=== PATIENT | female | born 1955 | race Caucasian/White ===

== ENCOUNTER 2017-07-16 12:37 | Inpatient (IN) ==
[2017-07-16] MEDS ORDERED: ZALEPLON 5 MG CAPSULE PO PRN (12:44)
[2017-07-16] MEDS ORDERED: ALBUTEROL/IPRATROPIUM 3 ML NEB RESP TX PRN (12:44)
[2017-07-16] MEDS ORDERED: BENZONATATE 100 MG CAPSULE PO PRN (12:53)
[2017-07-16] MEDS: ALBUTEROL/IPRATROPIUM 3 ML NEB RESP TX SCH ×2 (14:44→19:07)
[2017-07-16 15:08] LABS: Basophils # 0.1 10*3/uL (0.0-0.2); Basophils % 0.5 % (0.0-0.8); Eosinophils # 0.3 10*3/uL (0.0-0.87); Eosinophils % 2.6 % (0.00-10.9); Hematocrit 47.2 VOL% (35.7-47.0); Hemoglobin 15.3 GM/DL (12.0-16.0); Immature Granulocytes % 0.8 %; Immature Granulocytes Absolute 0.08 #; Lymphocytes # 2.3 10*3/uL (1.4-4.0); Lymphocytes % 21.3 % (21.3-54.2); Mean Corpuscular HGB Conc 32.4 GM/DL (32-36); Mean Corpuscular Hemoglobin 30 PG (27-34); Mean Corpuscular Volume 93.8 FL (87-102); Mean Platelet Volume 11.8 FL (9.6-12.0); Monocytes # 0.8 10*3/uL (0.11-0.8); Monocytes % 7.7 % (1.7-12.7); Neutrophils # 7.1 10*3/uL (1.4-7.4); Neutrophils % 67.1 % (38.7-73.9); Platelet Count 265 T/CUMM (130-400); Red Blood Count 5.03 MC/CUMM (3.8-5.5); Red Cell Distribution Width 13.4 % (9.3-17.3); White Blood Count 10.6 T/CUMM (4-12)
[2017-07-16] MEDS ORDERED: AMINOPHYLLINE 250 MG in SODIUM CHLORIDE 0.9% 100 ML IV ONE (15:30)
[2017-07-16 15:37] LABS: Bilirubin,Total 0.7 MG/DL (0.2-1.0); Calcium 9.6 MG/DL (8.5-10.1); Osmolality,Calculated 277.7 MOS/KG (273-304); Potassium 3.4 MMOL/L (3.5-5.1); Thyroid Stimulating Hormone 4.21 uIU/ml (0.358-3.74); Total Protein 7.9 G/DL (6.4-8.3)
[2017-07-16] MEDS: methylPREDNISolone SOD SUC 125 MG/2 ML VIAL IV SCH (16:09)
[2017-07-16] MEDS: CLINDAMYCIN INJ 300 MG in PREMIX 1 EACH IV SCH ×2 (16:12→23:08)
[2017-07-16] MEDS: PANTOPRAZOLE 40 MG TABLET PO SCH (16:12)
[2017-07-16] MEDS: MONTELUKAST 10 MG TABLET PO SCH (16:12)
[2017-07-16] MEDS: LEVOFLOXACIN INJ 500 MG in PREMIX 1 EACH IV SCH (16:50)
[2017-07-16] MEDS: NEOMYCIN/POLYMYXIN/HC OTIC SOLN 10 ML BOTTLE LEFT EAR SCH ×2 (18:29→22:06)
[2017-07-16] MEDS: GABAPENTIN 300 MG CAPSULE PO SCH ×2 (18:59→22:09)
[2017-07-16] MEDS: AMINOPHYLLINE 500 MG in SODIUM CHLORIDE 0.9% 480 ML IV SCH (20:29)
[2017-07-16] MEDS: ONDANSETRON 4 MG/2 ML VIAL IV PRN (22:00)
[2017-07-16] MEDS: POTASSIUM CHLORIDE 10 MEQ TABLET PO SCH (22:00)
[2017-07-16] MEDS: BUDESONIDE/FORMOTEROL 160-4.5 INHALER 6 GM INH SCH (22:06)
[2017-07-17 00:45] LABS: Apearance,Urine CLEAR (Clear); Bilirubin,Urine Negative (Negative); Blood, Urine Negative (Negative); Glucose,Urine (UA) Negative (Negative); Hyaline Casts,Urine 3 /LPF (0-3); Ketones,Urine Negative (Negative); Mucus,Urine Occasional /LPF (Occasional); Nitrite,Urine Negative (Negative); Protein,Urine Negative; Squamous Epithelial Cell,Urine Occasional /HPF (0-10); Urine Color Straw (Yellow); Urine Specific Gravity 1.004 (1.001-1.035); Urine Urobilinogen < 2.0 EU/DL (0.2-1.0); WBC,Urine <1 /HPF (0-6)
[2017-07-17] MEDS: methylPREDNISolone SOD SUC 125 MG/2 ML VIAL IV SCH ×2 (03:15→14:53)
[2017-07-17] MEDS: ONDANSETRON 4 MG/2 ML VIAL IV PRN (04:42)
[2017-07-17 06:40] LABS: Basophils % 0.1 % (0.0-0.8); Hematocrit 43.4 VOL% (35.7-47.0); Immature Granulocytes % 0.9 %; Immature Granulocytes Absolute 0.08 #; Lymphocytes % 11.4 % (21.3-54.2); Mean Corpuscular HGB Conc 32.3 GM/DL (32-36); Mean Corpuscular Hemoglobin 30 PG (27-34); Mean Corpuscular Volume 92.5 FL (87-102); Mean Platelet Volume 12.4 FL (9.6-12.0); Monocytes # 0.1 10*3/uL (0.11-0.8); Monocytes % 1.5 % (1.7-12.7); Neutrophils # 7.3 10*3/uL (1.4-7.4); Neutrophils % 86.1 % (38.7-73.9); Platelet Count 250 T/CUMM (130-400); Red Blood Count 4.69 MC/CUMM (3.8-5.5); Red Cell Distribution Width 13.3 % (9.3-17.3); White Blood Count 8.5 T/CUMM (4-12)
[2017-07-17 07:08] LABS: Calcium 9.4 MG/DL (8.5-10.1); Osmolality,Calculated 281.5 MOS/KG (273-304); Potassium 3.4 MMOL/L (3.5-5.1)
[2017-07-17] MEDS: ALBUTEROL/IPRATROPIUM 3 ML NEB RESP TX SCH ×4 (07:28→19:28)
[2017-07-17] MEDS: CLINDAMYCIN INJ 300 MG in PREMIX 1 EACH IV SCH ×3 (08:52→23:54)
[2017-07-17] MEDS: amLODIPine 5 MG TABLET PO SCH (08:53)
[2017-07-17] MEDS: NEOMYCIN/POLYMYXIN/HC OTIC SOLN 10 ML BOTTLE LEFT EAR SCH ×3 (08:54→20:45)
[2017-07-17] MEDS: MONTELUKAST 10 MG TABLET PO SCH (08:54)
[2017-07-17] MEDS: LORATADINE 10 MG TABLET PO SCH (08:54)
[2017-07-17] MEDS: PANTOPRAZOLE 40 MG TABLET PO SCH (08:54)
[2017-07-17] MEDS: CHOLECALCIFEROL 1,000 UNIT TABLET PO SCH (08:54)
[2017-07-17] MEDS: hydroCHLOROthiazide 25 MG TABLET PO SCH (08:54)
[2017-07-17] MEDS: BUDESONIDE/FORMOTEROL 160-4.5 INHALER 6 GM INH SCH ×2 (08:54→20:45)
[2017-07-17] MEDS: ASPIRIN EC 81 MG TABLET PO SCH (08:54)
[2017-07-17] MEDS: POTASSIUM CHLORIDE 10 MEQ TABLET PO SCH ×3 (08:54→20:42)
[2017-07-17] MEDS: GABAPENTIN 300 MG CAPSULE PO SCH ×2 (08:54→14:53)
[2017-07-17] MEDS: FLUCONAZOLE 200 MG TABLET PO SCH (14:53)
[2017-07-17] MEDS ORDERED: ALBUTEROL 0.63 MG/3 ML NEB RESP TX SCH (15:00)
[2017-07-17] MEDS: LEVOFLOXACIN INJ 500 MG in PREMIX 1 EACH IV SCH (16:48)
[2017-07-17] MEDS: AMINOPHYLLINE 500 MG in SODIUM CHLORIDE 0.9% 480 ML IV SCH (20:41)
[2017-07-17] MEDS: GABAPENTIN 600 MG TABLET PO SCH (20:41)
[2017-07-18] MEDS: methylPREDNISolone SOD SUC 125 MG/2 ML VIAL IV SCH ×2 (03:54→15:44)
[2017-07-18 06:30] LABS: Basophils % 0.1 % (0.0-0.8); Hemoglobin 14.2 GM/DL (12.0-16.0); Immature Granulocytes % 0.8 %; Immature Granulocytes Absolute 0.15 #; Lymphocytes % 5.7 % (21.3-54.2); Mean Corpuscular Hemoglobin 31 PG (27-34); Mean Corpuscular Volume 93.3 FL (87-102); Mean Platelet Volume 11.8 FL (9.6-12.0); Monocytes # 0.6 10*3/uL (0.11-0.8); Monocytes % 3.2 % (1.7-12.7); Neutrophils % 90.2 % (38.7-73.9); Platelet Count 247 T/CUMM (130-400); Red Blood Count 4.61 MC/CUMM (3.8-5.5); Red Cell Distribution Width 13.5 % (9.3-17.3); White Blood Count 17.7 T/CUMM (4-12)
[2017-07-18 06:55] LABS: Calcium 9.5 MG/DL (8.5-10.1); Osmolality,Calculated 282.5 MOS/KG (273-304); Potassium 4.1 MMOL/L (3.5-5.1)
[2017-07-18] MEDS: ALBUTEROL/IPRATROPIUM 3 ML NEB RESP TX SCH ×4 (07:31→19:53)
[2017-07-18] MEDS: NEOMYCIN/POLYMYXIN/HC OTIC SOLN 10 ML BOTTLE LEFT EAR SCH ×3 (08:08→21:52)
[2017-07-18] MEDS: CLINDAMYCIN INJ 300 MG in PREMIX 1 EACH IV SCH ×3 (08:08→23:58)
[2017-07-18] MEDS: BUDESONIDE/FORMOTEROL 160-4.5 INHALER 6 GM INH SCH ×2 (08:08→21:52)
[2017-07-18] MEDS: LORATADINE 10 MG TABLET PO SCH (08:08)
[2017-07-18] MEDS: MONTELUKAST 10 MG TABLET PO SCH (08:09)
[2017-07-18] MEDS: PANTOPRAZOLE 40 MG TABLET PO SCH (08:09)
[2017-07-18] MEDS: CHOLECALCIFEROL 1,000 UNIT TABLET PO SCH (08:09)
[2017-07-18] MEDS: amLODIPine 5 MG TABLET PO SCH (08:09)
[2017-07-18] MEDS: hydroCHLOROthiazide 25 MG TABLET PO SCH (08:09)
[2017-07-18] MEDS: POTASSIUM CHLORIDE 10 MEQ TABLET PO SCH ×3 (08:09→21:51)
[2017-07-18] MEDS: DOCUSATE SODIUM 100 MG CAPSULE PO PRN (08:09)
[2017-07-18] MEDS: GABAPENTIN 600 MG TABLET PO SCH ×3 (08:09→21:51)
[2017-07-18] MEDS: ASPIRIN EC 81 MG TABLET PO SCH (08:09)
[2017-07-18] MEDS: FLUCONAZOLE 200 MG TABLET PO SCH (08:09)
[2017-07-18] MEDS: ACETAMINOPHEN 325 MG TABLET PO PRN (14:04)
[2017-07-18] MEDS: LEVOFLOXACIN INJ 500 MG in PREMIX 1 EACH IV SCH (16:37)
[2017-07-18] MEDS: AMINOPHYLLINE 500 MG in SODIUM CHLORIDE 0.9% 480 ML IV SCH ×2 (17:36→22:04)
[2017-07-19] MEDS ORDERED: MAGNESIUM HYDROXIDE SUSP 30 ML UDCUP PO ONE (00:30)
[2017-07-19] MEDS: methylPREDNISolone SOD SUC 125 MG/2 ML VIAL IV SCH ×2 (04:38→16:29)
[2017-07-19 06:43] LABS: Basophils % 0.2 % (0.0-0.8); Hematocrit 44.3 VOL% (35.7-47.0); Hemoglobin 14.6 GM/DL (12.0-16.0); Immature Granulocytes % 1.2 %; Immature Granulocytes Absolute 0.22 #; Lymphocytes # 1.1 10*3/uL (1.4-4.0); Mean Corpuscular Hemoglobin 31 PG (27-34); Mean Corpuscular Volume 93.3 FL (87-102); Mean Platelet Volume 12.2 FL (9.6-12.0); Monocytes # 0.8 10*3/uL (0.11-0.8); Monocytes % 4.3 % (1.7-12.7); Neutrophils # 16.8 10*3/uL (1.4-7.4); Neutrophils % 88.3 % (38.7-73.9); Platelet Count 274 T/CUMM (130-400); Red Blood Count 4.75 MC/CUMM (3.8-5.5); Red Cell Distribution Width 13.5 % (9.3-17.3)
[2017-07-19] MEDS: CLINDAMYCIN INJ 300 MG in PREMIX 1 EACH IV SCH ×3 (07:05→23:18)
[2017-07-19 07:09] LABS: Calcium 9.4 MG/DL (8.5-10.1); Osmolality,Calculated 284.5 MOS/KG (273-304); Potassium 4.3 MMOL/L (3.5-5.1)
[2017-07-19] MEDS: ALBUTEROL/IPRATROPIUM 3 ML NEB RESP TX SCH ×4 (07:26→21:08)
[2017-07-19] MEDS: LORATADINE 10 MG TABLET PO SCH (08:35)
[2017-07-19] MEDS: POLYETHYLENE GLYCOL POWDER 17 GM PACK PO SCH (08:35)
[2017-07-19] MEDS: GABAPENTIN 600 MG TABLET PO SCH ×3 (08:35→21:46)
[2017-07-19] MEDS: amLODIPine 5 MG TABLET PO SCH (08:36)
[2017-07-19] MEDS: MONTELUKAST 10 MG TABLET PO SCH (08:36)
[2017-07-19] MEDS: CHOLECALCIFEROL 1,000 UNIT TABLET PO SCH (08:36)
[2017-07-19] MEDS: hydroCHLOROthiazide 25 MG TABLET PO SCH (08:36)
[2017-07-19] MEDS: FLUCONAZOLE 200 MG TABLET PO SCH (08:36)
[2017-07-19] MEDS: PANTOPRAZOLE 40 MG TABLET PO SCH (08:36)
[2017-07-19] MEDS: DOCUSATE SODIUM 100 MG CAPSULE PO PRN (08:36)
[2017-07-19] MEDS: ASPIRIN EC 81 MG TABLET PO SCH (08:37)
[2017-07-19] MEDS: NEOMYCIN/POLYMYXIN/HC OTIC SOLN 10 ML BOTTLE LEFT EAR SCH ×3 (08:37→21:46)
[2017-07-19] MEDS: POTASSIUM CHLORIDE 10 MEQ TABLET PO SCH ×3 (08:37→21:45)
[2017-07-19] MEDS: BUDESONIDE/FORMOTEROL 160-4.5 INHALER 6 GM INH SCH ×2 (08:37→21:46)
[2017-07-19] MEDS: LEVOFLOXACIN INJ 500 MG in PREMIX 1 EACH IV SCH (16:29)
[2017-07-19] MEDS: AMINOPHYLLINE 500 MG in SODIUM CHLORIDE 0.9% 480 ML IV SCH (21:44)
[2017-07-20] MEDS: methylPREDNISolone SOD SUC 125 MG/2 ML VIAL IV SCH ×2 (04:01→15:41)
[2017-07-20] MEDS: CLINDAMYCIN INJ 300 MG in PREMIX 1 EACH IV SCH ×3 (06:35→22:04)
[2017-07-20] MEDS: ALBUTEROL/IPRATROPIUM 3 ML NEB RESP TX SCH ×4 (07:48→19:24)
[2017-07-20] MEDS: LORATADINE 10 MG TABLET PO SCH (10:08)
[2017-07-20] MEDS: ASPIRIN EC 81 MG TABLET PO SCH (10:08)
[2017-07-20] MEDS: hydroCHLOROthiazide 25 MG TABLET PO SCH (10:08)
[2017-07-20] MEDS: CHOLECALCIFEROL 1,000 UNIT TABLET PO SCH (10:08)
[2017-07-20] MEDS: PANTOPRAZOLE 40 MG TABLET PO SCH (10:08)
[2017-07-20] MEDS: FLUCONAZOLE 200 MG TABLET PO SCH (10:08)
[2017-07-20] MEDS: POTASSIUM CHLORIDE 10 MEQ TABLET PO SCH ×3 (10:08→22:06)
[2017-07-20] MEDS: amLODIPine 5 MG TABLET PO SCH (10:09)
[2017-07-20] MEDS: GABAPENTIN 600 MG TABLET PO SCH ×3 (10:09→22:05)
[2017-07-20] MEDS: MONTELUKAST 10 MG TABLET PO SCH (10:09)
[2017-07-20] MEDS: NEOMYCIN/POLYMYXIN/HC OTIC SOLN 10 ML BOTTLE LEFT EAR SCH ×3 (10:10→22:06)
[2017-07-20] MEDS: POLYETHYLENE GLYCOL POWDER 17 GM PACK PO SCH (10:10)
[2017-07-20] MEDS: BUDESONIDE/FORMOTEROL 160-4.5 INHALER 6 GM INH SCH ×2 (10:10→22:06)
[2017-07-20] MEDS: THEOPHYLLINE ER 300 MG TABLET PO SCH (17:00)
[2017-07-20] MEDS: LEVOFLOXACIN INJ 500 MG in PREMIX 1 EACH IV SCH (17:00)
[2017-07-21] MEDS: methylPREDNISolone SOD SUC 125 MG/2 ML VIAL IV SCH ×2 (03:55→14:42)
[2017-07-21 05:57] LABS: Basophils # 0.1 10*3/uL (0.0-0.2); Basophils % 0.4 % (0.0-0.8); Hematocrit 40.3 VOL% (35.7-47.0); Hemoglobin 13.2 GM/DL (12.0-16.0); Immature Granulocytes % 5.9 %; Immature Granulocytes Absolute 0.95 #; Lymphocytes # 1.1 10*3/uL (1.4-4.0); Lymphocytes % 6.8 % (21.3-54.2); Mean Corpuscular HGB Conc 32.8 GM/DL (32-36); Mean Corpuscular Hemoglobin 31 PG (27-34); Mean Corpuscular Volume 93.5 FL (87-102); Mean Platelet Volume 12.3 FL (9.6-12.0); Monocytes # 0.8 10*3/uL (0.11-0.8); Monocytes % 5.1 % (1.7-12.7); Neutrophils # 13.1 10*3/uL (1.4-7.4); Neutrophils % 81.8 % (38.7-73.9); Platelet Count 212 T/CUMM (130-400); Red Blood Count 4.31 MC/CUMM (3.8-5.5); Red Cell Distribution Width 13.4 % (9.3-17.3)
[2017-07-21 06:21] LABS: Calcium 8.8 MG/DL (8.5-10.1); Potassium 4.7 MMOL/L (3.5-5.1)
[2017-07-21 06:26] LABS: Anisocytosis Slight; Hypochromasia 1+; Microcytosis Slight
[2017-07-21 06:27] LABS: Macrocytosis Slight
[2017-07-21 06:28] LABS: Ovalocytes Slight; Platelet Estimate Normal; Polychromasia Slight
[2017-07-21] MEDS: CLINDAMYCIN INJ 300 MG in PREMIX 1 EACH IV SCH ×3 (06:40→23:18)
[2017-07-21 06:55] LABS: Band Neutrophils 3 % (0-10); Lymphocytes 7 % (20-55); Metamyelocytes 2 %; Myelocytes 1 %; Promyelocytes 1 %; Segmented Neutrophils 83 % (50-85); Total Cells Counted 100
[2017-07-21 06:56] LABS: Basophilic Stippling Slight
[2017-07-21] MEDS: ALBUTEROL/IPRATROPIUM 3 ML NEB RESP TX SCH ×4 (07:30→19:50)
[2017-07-21] MEDS: LORATADINE 10 MG TABLET PO SCH (09:46)
[2017-07-21] MEDS: THEOPHYLLINE ER 300 MG TABLET PO SCH ×2 (09:46→16:26)
[2017-07-21] MEDS: POLYETHYLENE GLYCOL POWDER 17 GM PACK PO SCH (09:46)
[2017-07-21] MEDS: POTASSIUM CHLORIDE 10 MEQ TABLET PO SCH ×3 (09:46→21:09)
[2017-07-21] MEDS: CHOLECALCIFEROL 1,000 UNIT TABLET PO SCH (09:46)
[2017-07-21] MEDS: hydroCHLOROthiazide 25 MG TABLET PO SCH (09:46)
[2017-07-21] MEDS: ASPIRIN EC 81 MG TABLET PO SCH (09:47)
[2017-07-21] MEDS: GABAPENTIN 600 MG TABLET PO SCH ×3 (09:47→21:09)
[2017-07-21] MEDS: amLODIPine 5 MG TABLET PO SCH (09:47)
[2017-07-21] MEDS: FLUCONAZOLE 200 MG TABLET PO SCH (09:47)
[2017-07-21] MEDS: PANTOPRAZOLE 40 MG TABLET PO SCH (09:47)
[2017-07-21] MEDS: BUDESONIDE/FORMOTEROL 160-4.5 INHALER 6 GM INH SCH ×2 (09:48→21:08)
[2017-07-21] MEDS: MONTELUKAST 10 MG TABLET PO SCH (09:48)
[2017-07-21] MEDS: NEOMYCIN/POLYMYXIN/HC OTIC SOLN 10 ML BOTTLE LEFT EAR SCH ×3 (09:48→21:09)
[2017-07-21] MEDS ORDERED: amLODIPine 5 MG TABLET PO ONE (11:28)
[2017-07-21] MEDS: LEVOFLOXACIN INJ 500 MG in PREMIX 1 EACH IV SCH (16:23)
[2017-07-22] MEDS: methylPREDNISolone SOD SUC 125 MG/2 ML VIAL IV SCH (03:38)
[2017-07-22 06:09] LABS: Basophils # 0.1 10*3/uL (0.0-0.2); Basophils % 0.5 % (0.0-0.8); Hematocrit 38.8 VOL% (35.7-47.0); Hemoglobin 13.2 GM/DL (12.0-16.0); Immature Granulocytes Absolute 1.11 #; Lymphocytes # 1.1 10*3/uL (1.4-4.0); Mean Corpuscular Hemoglobin 31 PG (27-34); Mean Corpuscular Volume 91.3 FL (87-102); Mean Platelet Volume 12.4 FL (9.6-12.0); Monocytes % 5.3 % (1.7-12.7); Neutrophils # 15.1 10*3/uL (1.4-7.4); Neutrophils % 82.2 % (38.7-73.9); Platelet Count 218 T/CUMM (130-400); Red Blood Count 4.25 MC/CUMM (3.8-5.5); Red Cell Distribution Width 13.6 % (9.3-17.3); White Blood Count 18.4 T/CUMM (4-12)
[2017-07-22 06:28] LABS: Band Neutrophils 4 % (0-10); Hypochromasia 1+; Lymphocytes 3 % (20-55); Microcytosis 1+; Platelet Estimate Adequate; Polychromasia Slight; Segmented Neutrophils 79 % (50-85); Total Cells Counted 100
[2017-07-22 06:43] LABS: Albumin 3.3 G/DL (3.4-5.0); Bilirubin,Total 0.4 MG/DL (0.2-1.0); Calcium 8.8 MG/DL (8.5-10.1); Osmolality,Calculated 279.2 MOS/KG (273-304); Potassium 4.7 MMOL/L (3.5-5.1); Total Protein 6.3 G/DL (6.4-8.3)
[2017-07-22] MEDS: ALBUTEROL/IPRATROPIUM 3 ML NEB RESP TX SCH ×4 (06:50→19:03)
[2017-07-22] MEDS: CLINDAMYCIN INJ 300 MG in PREMIX 1 EACH IV SCH ×2 (07:13→16:22)
[2017-07-22] MEDS: MONTELUKAST 10 MG TABLET PO SCH (09:00)
[2017-07-22] MEDS: LORATADINE 10 MG TABLET PO SCH (09:00)
[2017-07-22] MEDS: POLYETHYLENE GLYCOL POWDER 17 GM PACK PO SCH (09:00)
[2017-07-22] MEDS: BUDESONIDE/FORMOTEROL 160-4.5 INHALER 6 GM INH SCH ×2 (09:00→21:16)
[2017-07-22] MEDS: CHOLECALCIFEROL 1,000 UNIT TABLET PO SCH (09:00)
[2017-07-22] MEDS: POTASSIUM CHLORIDE 10 MEQ TABLET PO SCH ×3 (09:00→21:15)
[2017-07-22] MEDS: ASPIRIN EC 81 MG TABLET PO SCH (09:00)
[2017-07-22] MEDS: amLODIPine 10 MG TABLET PO SCH (09:00)
[2017-07-22] MEDS: GABAPENTIN 600 MG TABLET PO SCH ×3 (09:00→21:15)
[2017-07-22] MEDS: hydroCHLOROthiazide 25 MG TABLET PO SCH ×3 (09:00→21:15)
[2017-07-22] MEDS: THEOPHYLLINE ER 300 MG TABLET PO SCH ×2 (09:00→16:15)
[2017-07-22] MEDS: PANTOPRAZOLE 40 MG TABLET PO SCH (09:00)
[2017-07-22] MEDS: FLUCONAZOLE 200 MG TABLET PO SCH (09:00)
[2017-07-22] MEDS: NEOMYCIN/POLYMYXIN/HC OTIC SOLN 10 ML BOTTLE LEFT EAR SCH ×3 (10:57→21:16)
[2017-07-22] MEDS ORDERED: FUROSEMIDE 40 MG TABLET PO ONE (11:29)
[2017-07-22] MEDS: LEVOFLOXACIN 500 MG TABLET PO SCH (16:15)
[2017-07-22] MEDS: ACETAMINOPHEN 325 MG TABLET PO PRN ×2 (16:20→22:53)
[2017-07-22] MEDS: CLINDAMYCIN 300 MG CAPSULE PO SCH (21:15)
[2017-07-22] MEDS: DOCUSATE SODIUM 100 MG CAPSULE PO PRN (21:15)
[2017-07-23] MEDS: ACETAMINOPHEN 325 MG TABLET PO PRN (05:01)
[2017-07-23] MEDS: CLINDAMYCIN 300 MG CAPSULE PO SCH ×3 (05:04→21:43)
[2017-07-23 06:52] LABS: Calcium 8.8 MG/DL (8.5-10.1); Osmolality,Calculated 278.1 MOS/KG (273-304); Potassium 3.7 MMOL/L (3.5-5.1)
[2017-07-23] MEDS: ALBUTEROL/IPRATROPIUM 3 ML NEB RESP TX SCH ×4 (07:15→21:30)
[2017-07-23] MEDS: CHOLECALCIFEROL 1,000 UNIT TABLET PO SCH (09:07)
[2017-07-23] MEDS: BUDESONIDE/FORMOTEROL 160-4.5 INHALER 6 GM INH SCH ×2 (09:07→20:56)
[2017-07-23] MEDS: THEOPHYLLINE ER 300 MG TABLET PO SCH ×2 (09:07→17:34)
[2017-07-23] MEDS: ASPIRIN EC 81 MG TABLET PO SCH (09:07)
[2017-07-23] MEDS: GABAPENTIN 600 MG TABLET PO SCH ×3 (09:07→20:52)
[2017-07-23] MEDS: amLODIPine 10 MG TABLET PO SCH (09:07)
[2017-07-23] MEDS: NEOMYCIN/POLYMYXIN/HC OTIC SOLN 10 ML BOTTLE LEFT EAR SCH ×4 (09:07→20:56)
[2017-07-23] MEDS: MONTELUKAST 10 MG TABLET PO SCH (09:07)
[2017-07-23] MEDS: FLUCONAZOLE 200 MG TABLET PO SCH (09:08)
[2017-07-23] MEDS: PANTOPRAZOLE 40 MG TABLET PO SCH (09:08)
[2017-07-23] MEDS: LORATADINE 10 MG TABLET PO SCH (09:08)
[2017-07-23] MEDS: POTASSIUM CHLORIDE 10 MEQ TABLET PO SCH ×3 (09:08→20:52)
[2017-07-23] MEDS: hydroCHLOROthiazide 25 MG TABLET PO SCH ×2 (09:08→20:52)
[2017-07-23] MEDS: LEVOFLOXACIN 500 MG TABLET PO SCH (09:09)
[2017-07-23] MEDS: POLYETHYLENE GLYCOL POWDER 17 GM PACK PO SCH ×2 (09:09→09:13)
[2017-07-23] MEDS: CLORAZEPATE 3.75 MG TABLET PO SCH ×3 (11:13→20:52)
[2017-07-23] MEDS: METOPROLOL TARTRATE 25 MG TABLET PO SCH ×2 (11:13→20:52)
[2017-07-23] MEDS: CYCLOBENZAPRINE 10 MG TABLET PO PRN ×2 (15:06→23:49)
[2017-07-24] MEDS: CLINDAMYCIN 300 MG CAPSULE PO SCH ×3 (05:29→21:41)
[2017-07-24 06:50] LABS: Basophils % 0.1 % (0.0-0.8); Eosinophils # 0.5 10*3/uL (0.0-0.87); Eosinophils % 2.9 % (0.00-10.9); Hematocrit 43.8 VOL% (35.7-47.0); Hemoglobin 14.3 GM/DL (12.0-16.0); Immature Granulocytes % 9.5 %; Immature Granulocytes Absolute 1.61 #; Lymphocytes # 2.6 10*3/uL (1.4-4.0); Lymphocytes % 15.3 % (21.3-54.2); Mean Corpuscular HGB Conc 32.6 GM/DL (32-36); Mean Corpuscular Hemoglobin 31 PG (27-34); Mean Corpuscular Volume 94.2 FL (87-102); Mean Platelet Volume 12.2 FL (9.6-12.0); Monocytes # 1.3 10*3/uL (0.11-0.8); Monocytes % 7.6 % (1.7-12.7); NRBC # 0.03 10*3/uL; Neutrophils % 64.6 % (38.7-73.9); Platelet Count 188 T/CUMM (130-400); Red Blood Count 4.65 MC/CUMM (3.8-5.5); Red Cell Distribution Width 13.8 % (9.3-17.3)
[2017-07-24] MEDS: ALBUTEROL/IPRATROPIUM 3 ML NEB RESP TX SCH ×4 (07:01→20:09)
[2017-07-24 07:23] LABS: Calcium 8.7 MG/DL (8.5-10.1); Osmolality,Calculated 276.1 MOS/KG (273-304); Potassium 3.6 MMOL/L (3.5-5.1)
[2017-07-24 07:25] LABS: Band Neutrophils 1 % (0-10); Eosinophils 2 % (0-10); Giant Platelets Few; Hypochromasia 1+; Lymphocytes 22 % (20-55); Microcytosis 1+; Platelet Estimate Normal; Segmented Neutrophils 71 % (50-85); Total Cells Counted 100
[2017-07-24] MEDS: CLORAZEPATE 3.75 MG TABLET PO SCH (08:52)
[2017-07-24] MEDS: MONTELUKAST 10 MG TABLET PO SCH (08:52)
[2017-07-24] MEDS: LORATADINE 10 MG TABLET PO SCH (08:52)
[2017-07-24] MEDS: POTASSIUM CHLORIDE 10 MEQ TABLET PO SCH (08:52)
[2017-07-24] MEDS: GABAPENTIN 600 MG TABLET PO SCH ×3 (08:52→21:01)
[2017-07-24] MEDS: amLODIPine 10 MG TABLET PO SCH (08:52)
[2017-07-24] MEDS: CHOLECALCIFEROL 1,000 UNIT TABLET PO SCH (08:52)
[2017-07-24] MEDS: THEOPHYLLINE ER 300 MG TABLET PO SCH ×2 (08:52→16:29)
[2017-07-24] MEDS: hydroCHLOROthiazide 25 MG TABLET PO SCH ×2 (08:53→21:01)
[2017-07-24] MEDS: METOPROLOL TARTRATE 25 MG TABLET PO SCH ×2 (08:53→21:01)
[2017-07-24] MEDS: PANTOPRAZOLE 40 MG TABLET PO SCH (08:53)
[2017-07-24] MEDS: ASPIRIN EC 81 MG TABLET PO SCH (08:53)
[2017-07-24] MEDS: LEVOFLOXACIN 500 MG TABLET PO SCH (08:53)
[2017-07-24] MEDS: BUDESONIDE/FORMOTEROL 160-4.5 INHALER 6 GM INH SCH ×2 (08:54→21:01)
[2017-07-24] MEDS: POLYETHYLENE GLYCOL POWDER 17 GM PACK PO SCH (08:54)
[2017-07-24] MEDS: NEOMYCIN/POLYMYXIN/HC OTIC SOLN 10 ML BOTTLE LEFT EAR SCH ×2 (08:55→16:30)
[2017-07-24] MEDS: ACETAMINOPHEN 325 MG TABLET PO PRN ×2 (11:18→21:00)
[2017-07-24] MEDS: POTASSIUM CHLORIDE 20 MEQ TABLET PO SCH ×2 (13:14→21:01)
[2017-07-24] MEDS: CLORAZEPATE 7.5 MG TABLET PO SCH ×2 (16:30→21:01)
[2017-07-25] MEDS: CLINDAMYCIN 300 MG CAPSULE PO SCH ×2 (05:43→14:46)
[2017-07-25 07:17] LABS: Calcium 8.8 MG/DL (8.5-10.1); Potassium 3.4 MMOL/L (3.5-5.1)
[2017-07-25] MEDS: ALBUTEROL/IPRATROPIUM 3 ML NEB RESP TX SCH ×3 (07:36→14:42)
[2017-07-25] MEDS: GABAPENTIN 600 MG TABLET PO SCH ×2 (08:43→14:46)
[2017-07-25] MEDS: POTASSIUM CHLORIDE 20 MEQ TABLET PO SCH (08:43)
[2017-07-25] MEDS: MONTELUKAST 10 MG TABLET PO SCH (08:43)
[2017-07-25] MEDS: PANTOPRAZOLE 40 MG TABLET PO SCH (08:43)
[2017-07-25] MEDS: CLORAZEPATE 7.5 MG TABLET PO SCH ×2 (08:43→14:46)
[2017-07-25] MEDS: THEOPHYLLINE ER 300 MG TABLET PO SCH ×2 (08:44→17:33)
[2017-07-25] MEDS: amLODIPine 10 MG TABLET PO SCH (08:44)
[2017-07-25] MEDS: LORATADINE 10 MG TABLET PO SCH (08:44)
[2017-07-25] MEDS: CHOLECALCIFEROL 1,000 UNIT TABLET PO SCH (08:44)
[2017-07-25] MEDS: ASPIRIN EC 81 MG TABLET PO SCH (08:44)
[2017-07-25] MEDS: METOPROLOL TARTRATE 25 MG TABLET PO SCH (08:44)
[2017-07-25] MEDS: hydroCHLOROthiazide 25 MG TABLET PO SCH (08:44)
[2017-07-25] MEDS: LEVOFLOXACIN 500 MG TABLET PO SCH (08:44)
[2017-07-25] MEDS: POLYETHYLENE GLYCOL POWDER 17 GM PACK PO SCH (08:45)
[2017-07-25] MEDS: BUDESONIDE/FORMOTEROL 160-4.5 INHALER 6 GM INH SCH (08:45)
[2017-07-25 17:53] VITALS: BP 144/94
== END 2017-07-25 18:45 | disposition home or self-care (01) | DRG 191 ==
LOC: N.5E 13:29
PROVIDERS: ADMIT Internal Medicine Pulmonary Disease; ATTEND Internal Medicine Pulmonary Disease